=== PATIENT | female | born 1960 | race Caucasian/White ===

== ENCOUNTER → 2021-02-05 | Outpatient (CLI) | payer SELFPAY ==
--- NOTE | 2021-02-05 09:52 | Diagnostic Imaging Report ---
INDICATION: Hyperlipidemia. CT cardiac calcium score performed with axial slices without contrast of the heart and calculation of cardiac calcium score. Dose reduction protocol was used. The visualized portions of the lung munoz were clear. There is no pneumothorax or overt pleural fluid. Visualized portions of the mediastinum showed no adenopathy. There is calcification of the proximal portion of the LAD, with calculated calcium score of 133.5. No significant coronary calcium is seen elsewhere. IMPRESSION: There is a calcified plaque in the LAD, with calcium score 133.5, compatible with moderate plaque burden. No significant calcification was seen elsewhere. Dictated by: Dictated on workstation # [id number]
== END ==
LOC: RAD FS 08:43
PROVIDERS: ATTEND Family Medicine
DX: I25.10 Atherosclerotic heart disease of native coronary artery without angina pectoris (principal); E78.5 Hyperlipidemia, unspecified
CPT/HCPCS: 75571